=== PATIENT | female | born 1975 | race Caucasian/White ===

== ENCOUNTER 2024-08-06 06:34 | Emergency (ER) | payer MEDICAID ==
[~2024-08-06] VITALS: Ht 154.9 cm; Wt 75.4 kg
[2024-08-06 07:02] VITALS: BP 147/81; TEMP 36.61404; O2SAT 94
[2024-08-06 07:40] LABS: BASOPHILS % 0.5 % (0.0-2.0); CHLORIDE 109 mEq/L (98-107); DIFFERENTIAL COMMENT 0; EOSINOPHILS % 6.2 % (0.0-5.0); HEMATOCRIT. 36.5 % (36.0-48.0); HEMOGLOBIN. 11.9 g/dL (12.0-16.0); LYMPHOCYTES % 26.9 % (20.0-50.0); MEAN CORPUSCULAR HEMOGLOBIN 24.7 pg (28.0-32.0); MEAN CORPUSCULAR HGB CONC 32.5 g/dL (31.0-37.0); MEAN CORPUSCULAR VOLUME 76.1 fL (81.0-99.0); MEAN PLATELET VOLUME 8.7 fl (7.4-10.4); MONOCYTES % 5.5 % (2.0-8.0); NEUTROPHILS % 60.9 % (40.0-76.0); PLATELET 257 x1000/uL (130-400); POTASSIUM 3.8 mEq/L (3.5-5.1); RED CELL DISTRIBUTION WIDTH 15.8 % (11.6-14.6); SODIUM 142 mEq/L (136-145)
[2024-08-06 07:41] LABS: CALCIUM 8.7 mg/dL (8.7-10.4); CARBON DIOXIDE 27 mEq/L (21-32)
[2024-08-06 07:46] LABS: CREATININE 0.7 mg/dL (0.6-1.0); GLUCOSE 116 mg/dL (70-105); UREA NITROGEN BLOOD 16 mg/dL (9-23)
[2024-08-06 07:48] LABS: TROPONIN I HIGH SENSITIVITY 14 ng/L (3.0-34)
[2024-08-06 08:45] VITALS: PULSE 82; RESP 20; O2SAT 99
[2024-08-06] MEDS: IPRATROPIUM/ALBUTEROL 0.5-3(2.5)MG/3ML NEB HHN ONE (08:45)
[2024-08-06] MEDS: PREDNISONE 20MG TABLET PO ONE (08:48)
[2024-08-06] MEDS ORDERED: ALBU18HF2 IH (09:34)
[2024-08-06] MEDS ORDERED: P50 MT (09:34)
== END 2024-08-06 11:18 | disposition home or self-care (01) ==
LOC: ER 06:34
DX: J45.901 Unspecified asthma with (acute) exacerbation (principal)
CPT/HCPCS: 80048; 85025; 84484; 36415; 71045; 94640; 94664; 93005; 94070; 98960; 99285; J7512; Z7610 ×2

== ENCOUNTER 2025-03-28 17:58 | Emergency (ER) | payer MEDICAID ==
[~2025-03-28] VITALS: Ht 152.4 cm; Wt 77.0 kg
[~2025-03-28 17:58] MED LIST: ALBU18HF2 IH; P50 MT
[2025-03-28] MEDS: PREDNISONE 20MG TABLET PO ONE (19:42)
[2025-03-28] MEDS: IPRATROPIUM/ALBUTEROL 0.5-3(2.5)MG/3ML NEB HHN ONE (19:53)
[2025-03-28 20:00] VITALS: PULSE 96; RESP 22; O2SAT 97
[2025-03-28] MEDS ORDERED: P20 PO (20:27)
[2025-03-28] MEDS ORDERED: ALBU18HF2 IH (20:27)
[2025-03-28] MEDS ORDERED: IPRA3AMP9 NEB (20:27)
[2025-03-28 20:31] VITALS: BP 151/85; PULSE 86; RESP 16; TEMP 36.8; O2SAT 96
== END 2025-03-28 20:36 | disposition home or self-care (01) ==
LOC: ER 17:58
DX: J45.901 Unspecified asthma with (acute) exacerbation (principal); Z79.899 Other long term (current) drug therapy
CPT/HCPCS: 94640; 99283; J7512; Z7610 ×3; 94070; 94664; 94760